=== PATIENT | male | born 1950 | race Caucasian/White ===

== ENCOUNTER 2025-08-15 11:47 | Day surgery (SDC) | payer MEDICARE ==
[~2025-08-15] VITALS: Ht 177.8 cm; Wt 80.7 kg
[~2025-08-15 11:47] MED LIST: HYDR-3490; LOSA100T46; LR 1,000 ML IV SCH; MIDAZOLAM INJ 2 MG/2 ML VIAL As Ordered ONE
[2025-08-15] MEDS: FLURBIPROFEN 0.03% OPHTH SOLN 2.5 ML OD SCH (12:46)
[2025-08-15] MEDS: CYCLOPENTOLATE 1% OPHTH SOLN 2 ML BTL OD SCH (12:46)
[2025-08-15] MEDS: PHENYLEPHRINE 2.5% OPHTH SOL 2ML OD SCH (12:46)
[2025-08-15] MEDS: TETRACAINE 0.5% OPHTH SOLN 4ML OD SCH (12:46)
[2025-08-15] MEDS: CEFUROXIME 1 MG/0.1 ML INTRACAMERAL INJ As Ordered ONE (14:22)
[2025-08-15] MEDS: LIDOCAINE 1% SDV 5 ML VIAL As Ordered ONE (14:22)
[2025-08-15 14:40] VITALS: BP 151/69; TEMP 98.2; O2SAT 97
== END 2025-08-15 14:58 | disposition home or self-care (01) ==
LOC: M SDC 11:47
PROVIDERS: ATTEND Ophthalmology
DX: H25.11 Age-related nuclear cataract, right eye (principal); I10 Essential (primary) hypertension; J45.909 Unspecified asthma, uncomplicated; Z79.899 Other long term (current) drug therapy; Z87.891 Personal history of nicotine dependence; Z98.84 Bariatric surgery status
CPT/HCPCS: 66984; J0697; J2250; J3010; V2632